=== PATIENT | female | born 1970 ===

== ENCOUNTER 2020-03-25 08:22 | Outpatient (CLI) | payer MEDICARE, SELFPAY ==
--- NOTE | 2020-05-07 20:28 | WPDHOMESLEEP ---
Sleep Study - Home Unattended Date of Study: 03/25/20 Ordering Provider: Cesar Ortega MD; primary care is Sunil Starr MD Interpreting Physician: Charissa Brito MD Home Sleep Study Type: Apnea Link Air Height: 1.68 m Weight: 95.254 kg Body Mass Index: 33.9 Neck Circumference (inches): 19 [place]: 12 Reason for Sleep Study Difficulty sleeping at night, wakes up during the night gasping for breath Sleep History Mariama Reece is a 49-year-old female who wakes up at night to catch her breath. There is a positive family history with her mother, brother and sister having sleep apnea. She she occasionally snores, rarely loud enough that others complain about it. She occasionally awakens at night with heartburn, belching or coughing. She occasionally awakens from sleep feeling short of breath. She frequently has trouble sleeping with a cold. She frequently gasps for breath at night. She occasionally has breathing problems at night observed by others. She constantly sweats excessively at night. She occasionally notices her heart pounding or beating irregularly at night. She constantly falls asleep during the day. She rarely falls asleep involuntarily, rarely while driving, rarely while exerting physical effort. She frequently has loss of muscle tone with strong emotion. She never has daytime difficulties due to excessive sleepiness. She is disabled. She rarely feels paralyzed on waking or falling asleep. She constantly has vivid dreamlike scenes upon awakening or falling asleep She is never afraid to go to sleep. She occasionally has nightmares. She occasionally remembers her dreams. She constantly has racing thoughts, constantly has feelings of sadness, depression and anxiety. She constantly is muscular tension. She occasionally notices parts of her body jerking. She occasionally kicks at night. She rarely has crawling and aching feelings in her legs. She constantly has leg pain during the night. She does not have morning jaw pain. She does not grind her teeth during sleep. She constantly is bothered by pain during the day, constantly is awakened by pain at night, constantly wakes up feeling stiff in the morning with sore or achy muscles and pain in the neck and spine. She has palpitations, fatigue, memory problems, concentration problems and headaches. She takes antacids regularly. She occasionally awakens feeling refreshed. Normal bedtime is 10:00 p.m. falling asleep within 10-20 minutes. She typically wakes 3-4 times during the night. She wakes in the morning at 9:00 a.m.. She estimates 9 hours of sleep at night. She denies taking naps in the afternoon. She does not feel refreshed after a short nap. She feels better in the morning compared to other times of day. Habits: She quit smoking several months ago. Denies caffeine, alcohol or recreational drugs. [facility] Past Medical History Medical History (Updated 05/07/20 @ 20:48 by Charissa Brito MD) Asthma Atrial fibrillation Bipolar disorder Chronic pain Chronic shortness of breath Diabetes Fibromyalgia Heartburn Hypothyroid Rheumatoid arthritis Surgical History Surgical History (Updated 05/07/20 @ 20:32 by Charissa Brito MD) History of appendectomy History of bilateral hip arthroplasty History of cholecystectomy History of hysterectomy History of sinus surgery History of tonsillectomy Family History Family History (Updated 05/07/20 @ 20:35 by Charissa Brito MD) Grandparent Breast cancer maternal grandmother Mother Asthma Heart disease Hypertension CHF (congestive heart failure) Father Heart disease Hypertension Asthma CHF (congestive heart failure) Social History Social History (Updated 05/07/20 @ 20:33 by Charissa Brito MD) Smoking packs per day: 0.5 Smoking cigarettes per day: 10.0 Years smoked: 30 Smoking pack-years: 15.00 Smoking status: Former smoker Smoking end date: 01/07/20 Alcohol intak
[2020-05-07 21:13] VITALS: BMI 33.9
== END 2020-03-25 08:23 | disposition home or self-care (01) ==
LOC: ANHCSM 08:26
DX: G47.33 Obstructive sleep apnea (adult) (pediatric) (principal)
CPT/HCPCS: 95806